=== PATIENT | female | born 1950 | race African-American/Black ===

== ENCOUNTER 2018-05-07 06:48 | Day surgery (SDC) ==
[2018-05-07] MEDS: TETRACAINE 0.5% UNIT-DOSE OP PRN ×2 (07:15→08:16)
[2018-05-07] MEDS: BETADINE OPTH PREP OP PRN ×2 (07:15→08:16)
[2018-05-07] MEDS: CYCLOGYL 2% OPTH OP PRN ×3 (07:15→07:25)
[2018-05-07] MEDS ORDERED: LIDOCAINE 1%/PHENYLEPHRINE 1.5% BSS (SURGERY) INTRAOCULA ONE (07:36)
[2018-05-07] MEDS ORDERED: BRIMONIDINE TARTRATE 0.2% OPTH SOL OP PRN (07:36)
[2018-05-07] MEDS ORDERED: ZOFRAN 4 MG/2 ML IVP ONE (07:36)
[2018-05-07] MEDS ORDERED: BSS WITH EPINEPHRINE OP ONE (07:36)
[2018-05-07] MEDS ORDERED: DEX-MOXI-KETOR OPTH INJ 1/0.5/0.4 MG/ML IO ONE (07:36)
[2018-05-07] MEDS ORDERED: AK-DILATE 10% OPTH SOL OP PRN (07:46)
[2018-05-07] MEDS ORDERED: SUBLIMAZE ONE (08:35)
[2018-05-07] MEDS ORDERED: VERSED ONE (08:35)
[2018-05-07] MEDS ORDERED: DIPRIVAN 20 ML VIAL IVP ONE (08:35)
[2018-05-07 15:51] VITALS: BP 127/56; TEMP 98.5
== END 2018-05-07 09:40 | disposition home or self-care (01) ==
LOC: SURG 06:48
PROVIDERS: ATTEND Ophthalmology
DX: H25.11 Age-related nuclear cataract, right eye (principal)

== ENCOUNTER 2018-06-18 06:38 | Day surgery (SDC) ==
[2018-06-18] MEDS: TETRACAINE 0.5% UNIT-DOSE OP PRN ×2 (07:11→08:16)
[2018-06-18] MEDS: BETADINE OPTH PREP OP PRN ×2 (07:11→08:05)
[2018-06-18] MEDS: CYCLOGYL 2% OPTH OP PRN ×3 (07:12→07:23)
[2018-06-18] MEDS ORDERED: ZOFRAN 4 MG/2 ML IVP ONE (07:18)
[2018-06-18] MEDS ORDERED: LIDOCAINE 1% 20 ML MDV ID STA (07:18)
[2018-06-18] MEDS ORDERED: BRIMONIDINE TARTRATE 0.2% OPTH SOL OP PRN (07:18)
[2018-06-18 07:27] VITALS: TEMP 97.1
[2018-06-18] MEDS ORDERED: VERSED ONE (08:11)
[2018-06-18] MEDS ORDERED: SUBLIMAZE ONE (08:11)
[2018-06-18] MEDS ORDERED: DIPRIVAN 20 ML VIAL IVP ONE (08:11)
[2018-06-18] MEDS: LIDOCAINE 1%/PHENYLEPHRINE 1.5% BSS (SURGERY) INTRAOCULA ONE ×2 (08:15→08:17)
[2018-06-18] MEDS: DEX-MOXI-KETOR OPTH INJ 1/0.5/0.4 MG/ML IO ONE ×2 (08:15→08:17)
[2018-06-18] MEDS: BSS WITH EPINEPHRINE OP ONE ×2 (08:15→08:17)
[2018-06-18 12:18] VITALS: BP 128/67
== END 2018-06-18 09:05 | disposition home or self-care (01) ==
LOC: SURG 06:38
PROVIDERS: ATTEND Ophthalmology
DX: H25.12 Age-related nuclear cataract, left eye (principal)